=== PATIENT | male | born 1940 | race Caucasian/White ===

== ENCOUNTER 2017-07-25 18:50 | Emergency (ER) | payer OTHER, SELFPAY ==
[2017-07-25] VITALS (7 sets, daily range): BP systolic 129–155; BP diastolic 78–89; PULSE 70–77; RESP 15–23; TEMP 36.9–38.8; O2SAT 95–99; BMI 23.2
--- NOTE | 2017-07-25 19:27 | DI.RAD.S_ITS ---
PROCEDURE: XR CHEST 1V INDICATIONS: suspected sepsis TECHNIQUE: One view of the chest was acquired. COMPARISON: None. FINDINGS: Surgical changes and devices: None. Lungs and pleura: No pleural effusions or pneumothorax. Lungs are clear. Mediastinum: Mediastinal contours appear normal. Heart size is normal. Bones and chest wall: No suspicious bony lesions. Overlying soft tissues appear unremarkable. IMPRESSION: No acute cardiopulmonary findings. Dictated by: Tamela Fraga M.D. on 07/25/2017 at 19:51 Approved by: Tamela Fraga M.D. on 07/25/2017 at 19:51
[2017-07-25] MEDS: SODIUM CHLORIDE 0.9% 1,000 ML 1000 ML IV (20:00)
--- NOTE | 2017-07-25 20:01 | ED.AMS ---
HPI - Altered Mental Status General Chief Complaint: Altered Mental Status Stated Complaint: Sudden decrease in neurological function,speech Time Seen by Provider: 07/25/17 20:01 History of Present Illness HPI narrative: Patient is a 77-year-old male who presents with increased confusion and weakness. He has a history of Parkinson's and dementia. states that he started getting extremely weak and confused last evening but it progressively worsened today. He was so weak in fact that they called EMS as. She could not get him to move. He is noted to have a fever of 102 in the ED. He is having a productive cough but no chest pain or shortness of breath. He has no abdominal pain nausea or vomiting or painful urination. 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 He has not had any falls recently. MD complaint: altered mental status and confusion Onset (ago): day(s) (2) Context: recent fever Associated symptoms: cough, fever and chills Related Data Previous Rx's Medication Instructions Recorded atenolol 100 mg PO QDAY #90 tab 06/20/16 cyanocobalamin (vitamin B-12) 1,000 mcg IM SEE INSTRUCTIONS #6 ea 08/28/16 warfarin [Coumadin] 4 mg PO QDAY #28 tab 09/25/16 Allergies Allergy/AdvReac Type Severity Reaction Status Date / Time No Known Allergies Allergy Uncoded 06/27/17 13:08 Review of Systems Review of Systems All systems reviewed & are unremarkable except as noted in HPI and below Constitutional Reports fatigue, Reports fever(s), Denies headache(s) and Reports weakness ENT Ears, Nose, Mouth, and Throat: Denies headache(s) and Denies neck pain Cardiovascular Denies chest pain, Denies irregular heart rhythm, Denies lightheadedness, Denies palpitations, Denies dyspnea on exertion and Denies orthopnea Respiratory Denies change in phlegm color, Reports chest congestion, Reports cough and Denies dyspnea on exertion Gastrointestinal Gastrointestinal: Denies abdominal pain, Denies change in bowel habits, Denies diarrhea, Denies nausea and Denies vomiting Genitourinary Denies hematuria, Denies flank pain, Denies urinary incontinence and Denies urinary urgency Musculoskeletal Denies neck pain Neurologic Reports system reviewed and no additional complaints, except as docu, Reports confusion, Denies headache(s) and Reports weakness Psychiatric Reports confusion Endocrine Reports fatigue and Denies palpitations Exam Const General: cooperative and frail appearing Nutritional Appearance: well nourished Orientation: alert, awake, oriented x3 and not confused HENNE Head: normocephalic and atraumatic Ears: external ears normal and TM's normal bilaterally Face and sinus: face symmetric Mouth: moist mucous membranes Eyes General: appearance normal, both eyes and all related structures Eyelids: eyelids normal Conjunctivae: conjunctivae normal Sclera: sclerae normal Pupils: PERRL EOM: EOM intact bilaterally Neck Neck: normal visual inspection, trachea midline, No lymphadenopathy, No midline deformity and No JVD Lymphatic: No lymphedema Resp Effort & Inspection: normal respiratory effort, able to speak in complete sentences, no respiratory distress and no use of accessory muscles Auscultation: clear to auscultation bilaterally, no rales, no rhonchi and no wheezes Cardio Rate: regular rate Rhythm: regular rhythm Heart Sounds: no click, no gallops, no murmurs and no rubs Pulses: normal peripheral pulses GI Inspection: non-distended Palpation: soft, no hepatosplenomegaly, No guarding, No pulsatile mass and No tender Auscultation: normal bowel sounds Skin General: no rashes or lesions noted, No jaundice and No petechiae Neuro General: alert, oriented x3, gait normal and no focal motor deficits Cranial Nerves: CN's II-XI intact bilaterally Speech: speech normal Motor: strength 5/5 throughout Sensory Exam: no sensory deficits noted MDM - Altered Mental Status MDM Narrative Medical decision making narrative: Patient is feeling better after IV fluids and fever control. No signs of severe sepsis or even source of infection at this time. The chest x-ray urine and blood work are within normal limits. Discussed with and patient no need for antibiotics at this time and close follow-up with a primary care provider. He has no focal neurologic deficits and no recent history or sign of trauma. He is on Coumadin. At this time I do not think he warrants head CT. He improved quite a lot with IV fluids and fever control. I think his weakness and confusion is from fever. Differential Diagnosis Likely dementia, hypoglycemia, hyponatremia, subarachnoid hemorrhage and sepsis Lab Data Attestation: I reviewed the patient's lab results. Result diagrams: 07/25/17 19:45 07/25/17 19:45 Lab Results 0507/25/17 07/25/17 Range/Units 19:45 19:45 19:45 WBC 9.2 (4.5-11.0) X10^3/uL RBC 4.25 L (4.5-5.9) X10^6/uL Hgb 13.7 (13.5-17.5) g/dL Hct 38.9 L (41-53) % MCV 91.4 (80-100) fL MCH 32.2 (26-34) PG MCHC 35.2 (30-36) % RDW 14.1 (11.6-14.8) % Plt Count 126 L (150-400) X10^3/uL Neut % (Auto) 70.2 (50-75) % Lymph % (Auto) 21.0 L (25-40) % [place] % (Auto) 8.3 (3-14) % Eos % (Auto) 0.3 L (2-4) % Baso % (Auto) 0.2 (0-2) % Neut # (Auto) 6500 H (3466-5661) /uL PT 23.0 H (10.1-12.7) SECONDS INR 2.1 H (0.9-1.3) APTT 36 (26.4-36.2) SECONDS Sodium (137-145) mmol/L Potassium (3.4-5.1) mmol/L Chloride (98-107) mmol/L Carbon Dioxide (22-32) mmol/L BUN (9-20) mg/dL Creatinine (0.66-1.25) mg/dL Estimated GFR (>60) mL/min BUN/Creatinine Ratio (6-22) Glucose (80-110) mg/dL Lactate (0.7-2.1) mmol/L Calcium (8.4-10.2) mg/dL Total Bilirubin (0.2-1.3) mg/dL AST (17-59) IU/L ALT (21-72) IU/L Alkaline Phosphatase (38-126) U/L Total Protein (6.3-8.2) g/dL Albumin (3.5-5.0) g/dL Globulin (1.7-4.1) g/dL Albumin/Globulin Ratio (1.0-2.8) Lipase (23-300) U/L Procalcitonin 0.11 (<0.5) ng/mL Influenza A & B (PCR) (Negative) 07/25/17 07/25/17 07/25/17 Range/Units 19:45 19:45 21:10 WBC (4.5-11.0) X10^3/uL RBC (4.5-5.9) X10^6/uL Hgb (13.5-17.5) g/dL Hct (41-53) % MCV (80-100) fL MCH (26-34) PG MCHC (30-36) % RDW (11.6-14.8) % Plt Count (150-400) X10^3/uL Neut % (Auto) (50-75) % Lymph % (Auto) (25-40) % [place] % (Auto) (3-14) % Eos % (Auto) (2-4) % Baso % (Auto) (0-2) % Neut # (Auto) (4791-3108) /uL PT (10.1-12.7) SECONDS INR (0.9-1.3) APTT (26.4-36.2) SECONDS Sodium 141 (137-145) mmol/L Potassium 4.0 (3.4-5.1) mmol/L Chloride 101.0 (98-107) mmol/L Carbon Dioxide 27.0 (22-32) mmol/L BUN 16.0 (9-20) mg/dL Creatinine 0.60 L (0.66-1.25) mg/dL Estimated GFR > 60.0 (>60) mL/min BUN/Creatinine Ratio 26.7 H (6-22) Glucose 108 (80-110) mg/dL Lactate 0.7 (0.7-2.1) mmol/L Calcium 9.0 (8.4-10.2) mg/dL Total Bilirubin 1.1 (0.2-1.3) mg/dL AST 23 (17-59) IU/L ALT 9 L (21-72) IU/L Alkaline Phosphatase 62 (38-126) U/L Total Protein 7.7 (6.3-8.2) g/dL Albumin 4.3 (3.5-5.0) g/dL Globulin 3.4 (1.7-4.1) g/dL Albumin/Globulin Ratio 1.3 (1.0-2.8) Lipase 36 (23-300) U/L Procalcitonin (<0.5) ng/mL Influenza A & B (PCR) Negative (Negative) Imaging Data Chest x-ray: Radiologist's impression: PROCEDURE: XR CHEST 1V INDICATIONS: suspected sepsis TECHNIQUE: One view of the chest was acquired. COMPARISON: None. FINDINGS: Surgical changes and devices: None. Lungs and pleura: No pleural effusions or pneumothorax. Lungs are clear. Mediastinum: Mediastinal contours appear normal. Heart size is normal. Bones and chest wall: No suspicious bony lesions. Overlying soft tissues appear unremarkable. IMPRESSION: No acute cardiopulmonary findings. Discharge Plan Departure Patient Disposition: Home, Self-Care Clinical Impression: Acute viral syndrome, Fever Discharge Date/Time: 07/25/17 23:25 Interventions: ED Discharge Assessment Last Done: 07/25/17 23:20 Instructions: DI for Viral Syndrome, DI for Fever (Symptom) -- Adult Activity Restrictions/Additional Instructions: *You have been diagnosed with fever and likely viral syndrome *What to do: Blood work chest x-ray within normal limits, at this time no need for antibiotics, increase fluid fever control *Take medications as directed *Follow up with your primary care provider in 2-3 days *Return to ER if you should have persistent ongoing fever for more than 5 days, worsening or new symptoms, fever not controlled with Tylenol or Motrin, increased confusion or any new, worsening or concerning symptoms Prescriptions: No Action atenolol 100 MG tablet 100 mg PO QDAY Qty: 90 RF: 2 cyanocobalamin (vitamin B-12) 1,000 MCG/1 ML solution 1,000 mcg IM SEE INSTRUCTIONS Qty: 6 RF: 0 warfarin [Coumadin] 2 MG tablet 4 mg PO QDAY Qty: 28 RF: 0 Referrals: Migue Storm MD [Primary Care Provider] -
[2017-07-25 20:18] LABS: INR 2.1 (0.9-1.3)
[2017-07-25 20:19] LABS: Add Manual Diff / Slide Review NO; Basophils Percent Auto 0.2 % (0-2); Eosinophils Percent Auto 0.3 % (2-4); Hematocrit 38.9 % (41-53); Hemoglobin 13.7 g/dL (13.5-17.5); Mean Corpuscular HGB Conc 35.2 % (30-36); Mean Corpuscular Hemoglobin 32.2 PG (26-34); Mean Corpuscular Volume 91.4 fL (80-100); Monocytes Percent Auto 8.3 % (3-14); Neutrophils Absolute Auto 6500 /uL (3000-5900); Neutrophils Percent Auto 70.2 % (50-75); Platelet Count 126 X10^3/uL (150-400); Red Blood Cell Count 4.25 X10^6/uL (4.5-5.9); Red Cell Distribution Width 14.1 % (11.6-14.8); White Blood Cell Count 9.2 X10^3/uL (4.5-11.0)
[2017-07-25 20:20] LABS: PTT Partial Thromboplastin Tim 36 SECONDS (26.4-36.2)
[2017-07-25 20:23] LABS: Alanine Aminotransferase 9 IU/L (21-72); Albumin 4.3 g/dL (3.5-5.0); Albumin Globulin Ratio 1.3 (1.0-2.8); Alkaline Phosphatase 62 U/L (38-126); Aspartate Aminotransferase 23 IU/L (17-59); BUN Creatinine Ratio 26.7 (6-22); Bilirubin Total 1.1 mg/dL (0.2-1.3); Estimated Glomerular Filt Rate > 60.0 mL/min (>60); Globulin 3.4 g/dL (1.7-4.1); Glucose 108 mg/dL (80-110); HEMOLYSIS < 15 (0-50); Lipase 36 U/L (23-300); Sodium 141 mmol/L (137-145); Total Protein 7.7 g/dL (6.3-8.2)
[2017-07-25 20:24] LABS: Lactate (Lactic Acid) 0.7 mmol/L (0.7-2.1)
[2017-07-25 20:42] LABS: Procalcitonin 0.11 ng/mL (<0.5)
[2017-07-25] MEDS: ACETAMINOPHEN 325 MG TABLET 650 MG PO (20:46)
[2017-07-25] MEDS: SODIUM CHLORIDE 0.9% 500 ML 1000 ML IV (22:00)
[2017-07-25 22:34] LABS: Influenza A and B by PCR Rapid Negative (Negative)
== END 2017-07-25 23:25 | disposition home or self-care (01) ==
PROVIDERS: Emergency Provider Emergency Medicine; PCP Family Medicine
DX: B34.9 Viral infection, unspecified (principal); R50.9 Fever, unspecified
CPT/HCPCS: 36415; 36591; 71045; 80053; 81003; 83605; 83690; 84145; 85025; 85610; 85730; 87040; 87400; 99283; 99284

== ENCOUNTER → 2018-07-25 09:53 | Outpatient (CLI) | payer MEDICARE, SELFPAY ==
--- NOTE | 2018-07-25 11:01 | DI.CT.S_ITS ---
PROCEDURE: CT CHEST ABD PEL W CON INDICATIONS: DYSPHAGIA/ABDOMINAL MASS/COUGH TECHNIQUE: After the administration of oral and intravenous contrast, 5 mm thick sections acquired from the lung apices to the symphysis. 5 mm coronal and sagittal reformats were performed, with additional 7 mm coronal MIP reformats through the lungs. For radiation dose reduction, the following was used: automated exposure control, adjustment of mA and/or kV according to patient size. COMPARISON: [facility], CT, PE STUDY (CTA CHEST), 02/19/2014, 10:06. FINDINGS: Image quality: Excellent. CHEST: Lungs and pleura: No acute airspace opacities. No pleural effusions or pneumothorax. Central and peripheral airways appear patent and normal in caliber. Mediastinum: Heart size is normal. No pericardial effusion. There are dense atheromatous calcifications of the coronary arteries and the mitral valve. No mediastinal or hilar adenopathy by size criteria. Thoracic aorta and central pulmonary arteries are normal in size. Scattered atheromatous calcifications are present within the aortic arch. Esophagus is normal in caliber. No hiatal hernia. Chest wall: No axillary or supraclavicular adenopathy by size criteria. Thyroid gland is unremarkable. ABDOMEN: Solid organs: Liver is normal in size and enhancement. Multiple punctate gallstones are layered within the gallbladder fundus. No gallbladder wall thickening or pericholecystic fluid. Biliary system is non dilated. Pancreas enhances normally. Spleen is normal in size and enhancement. 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 No adrenal nodules. Kidneys demonstrate normal size and enhancement, without hydronephrosis. Peritoneum and bowel: Bowel loops demonstrate normal wall thickness and caliber. The appendix is thin walled and contrast-filled. A large amount of stool is present in the rectosigmoid. No free fluid or air. Nodes and vessels: No retroperitoneal or mesenteric adenopathy by size criteria. Aorta and inferior vena cava are normal in size. Miscellaneous: No ventral hernias. PELVIS: Genitourinary: Bladder wall thickness is normal. Miscellaneous: No inguinal hernias or adenopathy. Bones: Severe wedge compression deformities are present at the L1, L2, and L4. Moderate wedge compression deformities are present at T11, and T3. Severe degenerative changes are present throughout the visualized portions of the thoracolumbar spine. IMPRESSION: 1. No acute pulmonary findings to explain patient's cough. 2. Arterial atherosclerosis. 3. No acute intra-abdominal findings. Normal appendix. 4. Large amount of stool the rectosigmoid. 5. Multiple severe wedge compression deformities of the thoracolumbar spine. The acuity of this finding is unknown without recent prior comparison. If there is high clinical suspicion for acute or subacute fracture, noncontrast MRI of this region would be helpful to evaluate for marrow edema. Dictated by: Tamela Fraga M.D. on 07/25/2018 at 16:49 Approved by: Tamela Fraga M.D. on 07/25/2018 at 16:57
== END ==
PROVIDERS: PCP Family Medicine; Visit Provider Family Medicine
DX: R13.10 Dysphagia, unspecified (principal); R19.00 Intra-abdominal and pelvic swelling, mass and lump, unspecified site; R05 Cough; I25.10 Atherosclerotic heart disease of native coronary artery without angina pectoris; M47.815 Spondylosis without myelopathy or radiculopathy, thoracolumbar region
CPT/HCPCS: 71260; 74177; Q9967

== ENCOUNTER 2018-08-29 12:30 | Outpatient (RCR) | payer MEDICARE, SELFPAY ==
--- NOTE | 2018-08-22 09:47 | ST.OPIE ---
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 Justus Jimenez Reason for Referral Oropharyngeal Dysphagia Setting Assessment Location Outpatient Care Visit Type Note Type Initial Evaluation Next Note Type Next Note Type Treatment Note Patient Information Identification Type Name History Mr. Monson is a 78 year old male who lives at home on [address] with his . He has a history of B12 deficiency, alcohol abuse, cognitive impairment, Parkinsons (2017). A modified barium swallow study was completed in 2017 and revealed moderate oropharyngeal dysphagia significant with vallecular and pyriform sinus residue, silent laryngeal penetration from pharyngeal residue, and no aspiration. Outpatient speech therapy was recommended at that time; however, the patient did not follow up as recommended. and Mrs. Monson are here today to follow up and receive recommendations due to ongoing episdoes of choking on solid foods which they report occurs frequently at every meal. He reports having most difficulty with dry, crumbly foods such as popcorn, rice and dry cereal which he has stopped eating. He denies difficulty with liquids, but reports thicker liquids are easier to swallow. Subjective Observations and Mrs. Monson arrived on time and were pleasant and conversant. Findings Impressions Extensive verbal education was provided regarding general swallowing anatomy with a visual diagram. We also discussed results of MBSS from 2017 in detail including recommendations for safe swallow strategies and exercises. Reviewed and provided written descriptions of Alem, Darell, Shaker and Supraglottic swallow. Discussed use of thickener as patient reports ease of swallowing with thicker liquids. I suggested a repeat MBSS given likely decline in swallowing function due to dx of Parkinson's; however, they would like to spend a few months working on the recommended exercises and strategies. Diet Recommendations Liquids Order Thin Diet Order Mechanical Soft Medication Recommendations One at a Time Comments With extra water Additional Dietary Needs Reminders to Use Strategies Aspiration Precautions Recommended Precautions Upright at 90 Degrees Alternate Liquids/Solids Frequent Rest Periods Small Bites/Sips Treatment Plan Placement Recommendations after Home Discharge Appropriate for Therapy Yes Therapy Recommendations Return x1 for ongoing education of strategies and exercises. Dysphagia Goals Mr. Monson will demonstrate completion of exercises as directed given min cues.
--- NOTE | 2018-08-30 09:59 | ST.IPDYTX ---
Care Team Visit Care Team Role Provider Type Justus Jimenez Attending Provider Non-Staff Primary Care Provider Specialty: Medical Address: [address] [place] [address], [id number] Email: MARKETING SUPPORT SPECIALIST Dysphagia Treatment MARKETING SUPPORT SPECIALIST Dysphagia Treatment Start: 08/22/18 15:36 Freq: Status: Active Protocol: Document 08/29/18 15:40 TLC (Rec: 08/29/18 16:04 TLC [id number]) Dysphagia Treatment Session Time Visit Start Time 12:30 Visit Stop Time 13:15 Total Visit Minutes 45 Visit Information Visit Number 2 Plan of Care Dates 08/22/18-11/25/18 Insurance Information Medicare Setting Assessment Location Outpatient Care Visit Type Note Type Discharge Summary Patient Information Identification Type Name Subjective Observations Marshall arrived on time accompanied by his . Treatment Liquids Trialed Thin [place] Administration Type Controlled Cup Sip Self-Feeding Treatment Activities Ongoing education including review of compensatory strategies, aspiration precautions and pharyngeal exercises. I also demonstrated thickening of liquids and Mr. Gonzalez consumed trials of both thin and nectar thick liquids. He reports ease of swallowing with thicker orange juice, but decreased palatability of thickened water. No signs of aspiration observed with trials of either . I recommended use of natural at-home thickeners such as mixing apple sauce in juices for patient ease. We also discussed recommendations for mechanical soft textures and small bites/sips to decrease choking risk given patient reports. Exercises were modeled and performed by Mr. Gonzalez with moderate verbal and written cues given cognitive impairment. Mrs. Gonzalez reports the caregiver who visits weekly will assist Mr. Gonzalez in completing these. We discussed importance of intensity and repetitions of exercises. Assessment Patient Response to Treatment Good Rehab Potential Good Assessment of Improvement Mrs. Gonzalez demonstrates understanding of recommendations. Given mild cognitive impairment, Mr. Gonzalez will benefit from cues /assistance with completing exercises daily and implementing strategies/ precautions. Diet Recommendations Recommendations Continue Current Diet Liquids Order Thin Diet Order Mechanical Soft Medication Recommendations Whole in [place] One at a Time Additional Dietary Needs Reminders to Use Strategies Aspiration Precautions Recommended Precautions Upright at 90 Degrees Alternate Liquids/Solids Small Bites/Sips Double Swallow Treatment Plan Placement Recommendation after Discharge Home Therapy Recommendations Discharge at the request of Mr . and Mrs. Gonzalez. Recommend repeat MBSS if symptoms persist and the family wants to pursue treatment again in the future. Dysphagia Goals Mr. Gonzalez will demonstrate completion of exercises as directed given min cues. - completing with moderate cues
== END 2018-08-29 13:34 | disposition home or self-care (01) ==
LOC: SP 12:30
PROVIDERS: PCP Family Medicine; Visit Provider Family Medicine
DX: R13.12 Dysphagia, oropharyngeal phase (principal)
CPT/HCPCS: 92526; 92610

== ENCOUNTER 2019-11-11 14:56 | Emergency (ER) | payer MEDICARE, SELFPAY ==
[2019-11-11 15:16] VITALS: BP 119/58; PULSE 85; RESP 18; TEMP 36.9; O2SAT 98; BMI 24.7
--- NOTE | 2019-11-11 15:28 | DI.CT.S_ITS ---
PROCEDURE: CT ABDOMEN PELVIS W CON INDICATIONS: RLQ and R inguinal pain increasing over 2 weeks TECHNIQUE: After the administration of intravenous contrast, 5 mm thick sections acquired from the diaphragm to the symphysis. 5 mm coronal and sagittal reformats were acquired. For radiation dose reduction, the following was used: automated exposure control, adjustment of mA and/or kV according to patient size. COMPARISON: [facility], CT, PE STUDY (CTA CHEST), 02/19/2014, 10:06. [facility], CT, CT CHEST ABD PEL W CON, 07/25/2018, 10:56. FINDINGS: Image quality: Excellent. ABDOMEN: Lung bases: Lung bases are clear. Heart size is normal. Coronary artery calcifications are seen. Calcification can be seen of the mitral valve annulus. Solid organs: Liver is normal in size and enhancement. Gallbladder demonstrates numerous layering gallstones. Biliary system is non dilated. Pancreas enhances normally. Spleen is normal in size and enhancement. Calcified splenic granulomas are seen. No adrenal nodules. Kidneys demonstrate normal size and enhancement, without hydronephrosis. Peritoneum and bowel: Bowel loops demonstrate normal wall thickness and caliber. No free fluid or air. A normal appendix is seen, as on series 2, image 31. There is a moderate amount of stool seen within the colon. Nodes and vessels: No retroperitoneal or mesenteric adenopathy by size criteria. Aorta and inferior vena cava are normal in size. Atherosclerotic calcification is noted. Miscellaneous: No ventral hernias. PELVIS: Genitourinary: Bladder wall thickness is normal. Miscellaneous: No inguinal hernias or adenopathy. No right inguinal abnormalities are seen. Bones: No suspicious bony lesions. No acute vertebral body compression fractures. Remote compression deformities are seen involving the L1 and L4 levels, which are stable compared to the prior CT examination. Relatively prominent bony degenerative changes are seen. IMPRESSION: Normal appendix. No right inguinal abnormalities are detected. There is a moderate amount of stool seen within the colon. Please correlate with an underlying history of constipation. Incidental note is made of: Atherosclerotic calcification, including coronary artery calcification Gallstones Prior granulomatous exposure. Stable L1 and L4 compression deformities. Dictated by: Dani Olvera M.D. on 11/11/2019 at 15:47 Approved by: Dani Olvera M.D. on 11/11/2019 at 15:51
[2019-11-11 15:58] LABS: Add Manual Diff / Slide Review NO; Basophils Absolute Auto 0 /uL (0-100); Basophils Percent Auto 0.5 % (0-2); Eosinophils Absolute Auto 100 /uL (0-450); Eosinophils Percent Auto 1.4 % (2-4); Hematocrit 35.9 % (41-53); Hemoglobin 12.2 g/dL (13.5-17.5); Lymphocytes Absolute Auto 2100 /uL (1100-4500); Lymphocytes Percent Auto 36.4 % (25-40); Mean Corpuscular Hemoglobin 31.9 PG (26-34); Mean Corpuscular Volume 93.8 fL (80-100); Monocytes Absolute Auto 600 /uL (0-900); Monocytes Percent Auto 9.6 % (3-14); Neutrophils Absolute Auto 3000 /uL (1500-7000); Neutrophils Percent Auto 52.1 % (50-75); Platelet Count 135 X10^3/uL (150-400); Red Blood Cell Count 3.83 X10^6/uL (4.5-5.9); Red Cell Distribution Width 14.5 % (11.6-14.8); White Blood Cell Count 5.9 X10^3/uL (4.5-11.0)
[2019-11-11 16:10] LABS: Alanine Aminotransferase 7 IU/L (<50); Albumin Globulin Ratio 1.4 (1.0-2.8); Alkaline Phosphatase 64 U/L (38-126); Aspartate Aminotransferase 28 IU/L (17-59); BUN Creatinine Ratio 26.5 (6-22); Bilirubin Total 0.7 mg/dL (0.2-1.3); Blood Urea Nitrogen 18 mg/dL (9-20); Calcium 8.9 mg/dL (8.4-10.2); Carbon Dioxide 27 mmol/L (22-32); Chloride 109 mmol/L (98-107); Estimated Glomerular Filt Rate > 60.0 mL/min (>60); Globulin 2.9 g/dL (1.7-4.1); Glucose 96 mg/dL (80-110); HEMOLYSIS < 15 (0-50); Potassium 4.2 mmol/L (3.4-5.1); Sodium 141 mmol/L (137-145); Total Protein 6.9 g/dL (6.3-8.2)
--- NOTE | 2019-11-11 17:20 | ED_ITS ---
HPI - Abdominal Pain General Chief Complaint: Abdominal Pain Stated Complaint: possible hernia Time Seen by Provider: 11/11/19 15:28 Source: patient and other Mode of arrival: Ambulatory Limitations: no limitations History of Present Illness HPI narrative: 79-year-old gentleman with a history of Parkinson's disease with mild parkinsonian-type dementia who has had 2 and half weeks of increasing right lower quadrant and right inguinal area pain. He describes no diarrhea or constipation no blood in his stool, no fevers, no vomiting, no cough no recent trauma or falls. Related Data Previous Rx's Medication Instructions Recorded atenolol 100 mg PO QDAY #90 tab 06/20/16 cyanocobalamin (vitamin B-12) 1,000 mcg IM SEE INSTRUCTIONS #6 ea 08/28/16 warfarin [Coumadin] 4 mg PO QDAY #28 tab 09/25/16 Allergies Allergy/AdvReac Type Severity Reaction Status Date / Time No Known Drug Allergies Allergy Verified 11/11/19 15:15 Review of Systems Review of Systems Narrative: Pertinent positive and negative findings as per HPI Remainder of review of systems is otherwise unremarkable for Constitutional: Fevers, chills, weakness ENT: No sore throat, neck pain, ear pain CV: Chest pain, palpitations, dyspnea on exertion Respiratory: Cough, wheeze, dyspnea Patient History Medical History (Updated 11/11/19 @ 17:42 by Sravanthi Segura MD) Intracranial bleed (Acute) Parkinson's disease (Acute) Social History Smoking Status: Former smoker Smoking Status: Former smoker alcohol intake frequency: other Substance Use Type: does not use Exam Narrative Exam Narrative: General: Alert appropriate in no acute distress Respiratory: Able to speak in full sentences, no obvious respiratory distress Cardiac: Regular rate and rhythm without murmurs Abdomen: Soft, nondistended. Slight pinpoint right lower quadrant tenderness. He Groin, no tenderness into the testicles no obvious hernias or masses in the right inguinal crease Skin: No obvious rashes, warm and dry Neurologic: Grossly intact no obvious asymmetries or abnormalities Psych, appropriate insight and affect, cooperative Initial Vital Signs Initial Vital Signs: Vital Signs Temperature 98.4 F 11/11/19 15:16 Pulse Rate 85 11/11/19 15:16 Respiratory Rate 18 11/11/19 15:16 Blood Pressure 119/58 L 11/11/19 15:16 Pulse Oximetry 98 11/11/19 15:16 Course Orders Ordered: ED Orders 11/11/19 15:28 CT abdomen pelvis w con Stat 11/11/19 15:50 Complete Blood Count AUTO DIFF Stat Comprehensive Metabolic Panel Stat Vital Signs Vital signs: Vital Signs - 8 hr 11/11/19 15:16 Temperature 98.4 F Pulse Rate 85 Respiratory Rate 18 Blood Pressure 119/58 L Pulse Oximetry 98 MDM - Abdominal Pain Medical Records Attestation: I reviewed the patient's medical records. Lab Data Attestation: I reviewed the patient's lab results. Result diagrams: 11/11/19 15:50 11/11/19 15:50 Labs: Lab Results 11/11/19 11/11/19 Range/Units 15:50 15:50 WBC 5.9 (4.5-11.0) X10^3/uL RBC 3.83 L (4.5-5.9) X10^6/uL Hgb 12.2 L (13.5-17.5) g/dL Hct 35.9 L (41-53) % MCV 93.8 (80-100) fL MCH 31.9 (26-34) PG MCHC 34.0 (30-36) % RDW 14.5 (11.6-14.8) % Plt Count 135 L (150-400) X10^3/uL Neut % (Auto) 52.1 (50-75) % Lymph % (Auto) 36.4 (25-40) % [place] % (Auto) 9.6 (3-14) % Eos % (Auto) 1.4 L (2-4) % Baso % (Auto) 0.5 (0-2) % Neut # (Auto) 3000 (7646-4550) /uL Lymph # (Auto) 2100 (6905-5610) /uL [place] # (Auto) 600 (0-900) /uL Eos # (Auto) 100 (0-450) /uL Baso # (Auto) 0 (0-100) /uL Sodium 141 (137-145) mmol/L Potassium 4.2 (3.4-5.1) mmol/L Chloride 109 H (98-107) mmol/L Carbon Dioxide 27 (22-32) mmol/L BUN 18 (9-20) mg/dL Creatinine 0.68 (0.66-1.25) mg/dL Estimated GFR > 60.0 (>60) mL/min BUN/Creatinine Ratio 26.5 H (6-22) Glucose 96 (80-110) mg/dL Calcium 8.9 (8.4-10.2) mg/dL Total Bilirubin 0.7 (0.2-1.3) mg/dL AST 28 (17-59) IU/L ALT 7 (<50) IU/L Alkaline Phosphatase 64 (38-126) U/L Total Protein 6.9 (6.3-8.2) g/dL Albumin 4.0 (3.5-5.0) g/dL Globulin 2.9 (1.7-4.1) g/dL Albumin/Globulin Ratio 1.4 (1.0-2.8) Imaging Data CT scan - abdomen/pelvis: Radiologist's Impression: IMPRESSION: Normal appendix. No right inguinal abnormalities are detected. There is a moderate amount of stool seen within the colon. Please correlate with an underlying history of constipation. Incidental note is made of: Atherosclerotic calcification, including coronary artery calcification Gallstones Prior granulomatous exposure. Stable L1 and L4 compression deformities. Dictated by: Dani Olvera M.D. on 11/11/2019 at 15:47 MDM Narrative Medical decision making narrative: 79-year-old gentleman with 2 weeks of abdominal pain focused in the right lower quadrant and right inguinal area. Normal labs no evidence of surgical pathology on CT scan and no evidence of inguinal hernia. Notable for obstipation. Will try a bit of a colon cleanse and see if this influences pain. Also discussed recommendations for a better daily bowel regimen. Patient is safe for home discharge Discharge Plan Departure Patient Disposition: Home Clinical Impression: Obstipation Abdominal pain Qualifiers: Abdominal location: right lower quadrant Qualified Code(s): R10.31 - Right lower quadrant pain Instructions: DI for Constipation Activity Restrictions/Additional Instructions: Thank you for coming in today Your blood work is very reassuring, your CT scan shows no evidence of hernia, appendicitis or other surgical problems in your belly. It also shows a dramatic amount of stool throughout your entire colon. I suspect that this is been an increasing problem over the last 2 weeks and is what is contributing to the pain in her currently having. I have sent you home with a bottle of magnesium citrate, when you get home, go ahead and drink the entire bottle. The goal is to get to almost watery stool. If there is little movement or still mostly formed stool after 1 bottle please by a 2nd bottle at the grocery store knees that tomorrow. To prevent this from happening again I am going to suggest that you use a dose of MiraLax (17 g, 1 full cap full) every single day. If you find that you are having loose stools you can back off on this. I suspect that your Parkinson's and the medications that you are taking to help control this are contributing to your chronic constipation. I hope you feel better Prescriptions: No Action atenolol 100 MG tablet 100 mg PO QDAY Qty: 90 RF: 2 cyanocobalamin (vitamin B-12) 1,000 MCG/1 ML solution 1,000 mcg IM SEE INSTRUCTIONS Qty: 6 RF: 0 warfarin [Coumadin] 2 MG tablet 4 mg PO QDAY Qty: 28 RF: 0 Referrals: Justus Jimenez [Primary Care Provider] -
[2019-11-11 17:48] VITALS: BP 122/74; PULSE 68; RESP 22; O2SAT 96
[2019-11-11] MEDS: MAGNESIUM CITRATE 300 ML SOLUTION PO (17:49)
== END 2019-11-11 17:55 | disposition home or self-care (01) ==
PROVIDERS: Emergency Provider Emergency Medicine; PCP Family Medicine; Referring Provider Family Medicine
DX: R10.31 Right lower quadrant pain (principal); K59.00 Constipation, unspecified; G20 Parkinson's disease
CPT/HCPCS: 36415; 74177; 80053; 85025; 99283; 99284

== ENCOUNTER → 2020-01-11 13:04 | Outpatient (CLI) | payer MEDICARE, SELFPAY ==
[2020-01-12 11:10] LABS: COVID19 -Nasal RAPID Negative (Negative)
== END ==
PROVIDERS: PCP Family Medicine; Visit Provider Physician Assistant
DX: Z11.59 Encounter for screening for other viral diseases (principal)
CPT/HCPCS: 87635

== ENCOUNTER 2020-01-14 11:09 | Day surgery (SDC) | payer MEDICARE, SELFPAY ==
[2020-01-09 08:47] VITALS: BMI 22.4
[2020-01-14] VITALS (18 sets, daily range): BP systolic 133–182; BP diastolic 58–104; PULSE 55–101; RESP 12–18; TEMP 36.1–36.7; O2SAT 94–100; BMI 23.1; BMI 22.3
--- NOTE | 2020-01-14 | PATH_ITS ---
[facility] Accession Number: [id number] . 01 Material submitted: . hernia - HERNIA SAC . 01 Clinical history: . HERNIA . 02 Diagnosis: Hernia Sac, Excision: Benign fibroadipose tissue, consistent with hernia sac. No evidence of neoplasm. MRV 01/19/2020 0955 Local . 02 Electronically signed: . Tawanda Tucker MD, PhD, Pathologist NPI- [id number] . 01 Gross description: . Received in formalin, labeled hernia sac, and consists of a 4.0 x 2.5 x 1.2 cm wei-pink fibromembranous fragment of soft tissue with attached wei-yellow lobulated adipose tissue. Sheriff'[employer] Officer sections are submitted in cassette A1. ([id number]) /MRV 01/15/2020 1417 Local . 02 Pathologist provided ICD-10: K40.30 . 02 CPT . 465640 Performed at: 01 [facility] [address] [facility], [place], [place] [id number] MD [place] Naidu MD Phone: [phone] Performed at: 02 [facility] [address] [place], [place] [id number] MD Hina Toledo MD Phone: [phone]
[2020-01-14] MEDS: LACTATED RINGERS 1,000 ML 42 ML IV (12:12)
[2020-01-14] MEDS: ACETAMINOPHEN 325 MG TABLET 975 MG PO (12:13)
--- NOTE | 2020-01-14 14:39 | PM.PREOP ---
Pre-operative Note COVID-19 COVID-19 status: Negative Result date/Date tested (Pos, Neg/Pending): 01/11/20 Interval Note History & Physical reviewed/Exam performed by Physician: Yes Changes to H&P: No
[2020-01-14] MEDS: CEFAZOLIN 2 GM/100 ML FROZ.PIGGY IV (14:49)
--- NOTE | 2020-01-14 15:11 | SUR.OPER ---
Supine on padded OR bed, head on pillow, arms secured on padded arm boards at <90 degrees abduction, legs uncrossed, safety belt at thigh, tape over blanket over lower legs.
[2020-01-14] MEDS: BUPIVACAINE 0.25% W/ EPI 30 ML VIAL INJ ×2 (15:16→15:49)
[2020-01-14] MEDS: BUPIVACAINE LIPOSOME 266 MG/20 ML VIAL INJ (15:48)
--- NOTE | 2020-01-14 16:24 | P.OP_ITS ---
Operative Date/Time/Diagnoses Date of procedure: 01/14/20 Time of procedure: 16:24 Pre-op diagnosis: Right inguinal hernia Post-op diagnosis: same Procedure & Clinicians Procedure: Open repair of right inguinal hernia with mesh Same procedure as scheduled: Yes Indications: Symptomatic right inguinal hernia Surgeon: Jadyn Berrios Yes if Unassisted: Yes Anesthesia Type: General Operative Notes Findings: Indirect right inguinal hernia; weak inguinal canal floor Specimen(s): other (hernia sac) Prosthetic devices, grafts, tissues, transplants, or devices: BARD lightweight macroporous mesh Estimated Blood Loss (mL): 2 Blood products transfused: none Procedure in detail: The patient was brought into the OR, placed supine on the OR table, and appropriate preoperative antibiotics were given. Sequential compression devices were placed on both legs and turned on. General anesthesia was induced and the patient was intubated with an LMA by the anesthesiologist. The right lower abdomen and groin were prepped and draped in sterile fashion for inguinal incision. A surgical time out was conducted. Local anesthetic was infiltrated into the skin and a 15 blade was used to make an oblique 10cm incision two finger breadths superior to the inguinal ligament. Dissection was carried down to through the subcutaneous fat and meagan's fascia. Dissection was carried down to the aponeurosis of the external oblique. Using a fresh 15 blade, I opened the aponeurosis after giving generous local anesthetic. There was a moderate indirect inguinal hernia with a heavily scarred sac attached to the spermatic cord, and a weak inguinal canal floor. I dissected out the hernia sac and ligated it high in indirect space using 3-0 Vicryl. I divided the excess sac with cautery. I then gave local anesthetic in the inguinal canal f josesito, pubic tubercle, and conjoint tendon, using a total of 60mL of 0.25% Marcaine with Epi. I also infiltrated the area superior to Poupart's ligament with 20mL Exparel in small aliquots. A BARD macroporous inguinal hernia mesh was then brought into the field and shaped to fit the groin. I secured it to the ligaments overlying the pubic tubercle with 2cm overlap, and then secured it to the inguinal ligament inferiorly and the conjoint tendon superiorly with 2-0 PDS suture. I made an opening in the mesh to accommodate the spermatic cord, ensuring it was appropriately sized to avoid strangulation of the cord. Once the mesh was secure, I closed the external oblique aponeurosis with 3-0 Vicryl. I closed the Meagan's fascia with 3-0 Vicryl. The remaining local anesthetic was given in the skin and soft tissue. The skin was closed with running 4-0 Monocryl subcuticular stitch. The skin edges were sealed with Dermabond. The patient was awakened from anesthesia and extubated. He tolerated the procedure well. Needle, sponge and instrument counts were correct x 2. The patient was transferred to PACU in stable condition. Complications: none Post-operative Condition: stable Disposition: PACU
[2020-01-14] MEDS: CARBIDOPA-LEVODOPA ER 50/200 TABLET 1 EACH PO (19:12)
[2020-01-15 01:41] VITALS: BP 109/64; PULSE 104; RESP 16; TEMP 36.7; O2SAT 96
--- NOTE | 2020-01-15 01:50 | PC.NURSE ---
Patient has been sleeping since start of shift but now awake and restless in bed. Speech is difficult to understand but does state name is Rl. When asked if he is in pain he states no. Moving arms/legs around constantly and unable to keep still for any length of time. Is not belligerent but resistive to cares. BT present and abdomen is soft. Incision to RLQ of abdomen is dermabonded, well approximated and without redness. Assisted to turn onto left side. SCD's are off as previous RN stated patient would not leave them on. Is also not on continuous oximetry as will not leave oximeter on. Fall risk score is high at RN discretion and bed alarm is activated.
[2020-01-15 04:35] VITALS: BP 153/76; PULSE 74; RESP 16; TEMP 36.1; O2SAT 99
[2020-01-15 08:00] VITALS: BP 155/76; PULSE 57; RESP 16; TEMP 36.9; O2SAT 97
--- NOTE | 2020-01-15 10:48 | CM.IDA ---
Initial DCP Assessment Note Pt is a 79 yo female, resident of [place], now POD#1 from hernia repair surgery w/ Dr Palma PCP: Justus Jimenez Payer: [employer] Reviewed chart, Met w/patient and spouse early this AM to introduce role. Spouse states she has a caregiver that assist spouse approx 6 hours weekly and can increase hours if needed. Patient/spouse intend to catch the [address] to [place] this AM. Spouse denies needs from this INFORMATION TECHNOLOGY PROFESSOR No needs expected from DC planning team. Later heard that patient/spouse made it out of the building on time for their morning ferry TASHI Jaime
--- NOTE | 2020-01-15 10:54 | PC.NURSE ---
Discharge teaching done for patient and regarding incision, activity, medication, follow up appointment, falls, s/s of infection, s/s of stroke. All belongings with patient. Patient prescriptions sent to pharmacy via electronic submission. Patient left facility it wheelchair w/ in private vehicle.
== END 2020-01-15 09:00 | disposition home or self-care (01) ==
LOC: OR 15:38 → AC 18:43
PROVIDERS: PCP Family Medicine; Referring Provider Surgery; Visit Provider Surgery
PROC: (CPT 49505; principal; 2020-01-14 13:15)
DX: K40.30 Unilateral inguinal hernia, with obstruction, without gangrene, not specified as recurrent (principal); G20 Parkinson's disease; J44.9 Chronic obstructive pulmonary disease, unspecified; I10 Essential (primary) hypertension; D68.51 Activated protein C resistance; F03.90 Unspecified dementia, unspecified severity, without behavioral disturbance, psychotic disturbance, mood disturbance, and anxiety; Z79.01 Long term (current) use of anticoagulants
CPT/HCPCS: 49505; C1781; C9290; J0690; J1100; J2405; J2704

== ENCOUNTER → 2020-03-01 12:54 | Outpatient (CLI) | payer MEDICARE, SELFPAY ==
[2020-01-14 18:25] VITALS: BMI 22.3
--- NOTE | 2020-03-01 | DI.RAD.S_ITS ---
PROCEDURE: FL BARIUM SWALLOW W SPEECH INDICATIONS: Dysphagia, unspecified COMPARISON: TECHNIQUE: Examination was conducted in conjunction with speech pathology per standard protocol. In the lateral projection, filming was performed of the patient swallowing. AP projection filming may also be performed with patient swallowing. COMPARISON: [facility], , BARIUM SWALLOW WITH SPEECH, 07/13/2016, 9:35. FINDINGS: Function: The oral preparatory phase appears delayed. The subsequent oral propulsive phase, pharyngeal phase, and esophageal phase of swallowing also appear delayed There was frequent silent laryngotracheal penetration and aspiration. Large amount of residue seen. Morphology: No cricopharyngeal bar is identified. No cervical esophageal webs. No Zenker's diverticulum. No strictures. IMPRESSION: Silent tracheal aspiration Dictated by: Kole Ash M.D. on 03/01/2020 at 16:26 Approved by: Kole Ash M.D. on 03/01/2020 at 16:27
--- NOTE | 2020-03-02 18:19 | ST.SWALLOW ---
Visit Care Team Role Provider Type Justus Jimenez MD Primary Care Provider Non-Staff Referring Provider Specialty: Family Practice Address: [address] [place] [address], [id number] Email: Attending Provider Specialty: Address: Phone: Fax: Email: Modified Barium Swallow Study BEAN SORTER Modified Barium Swallow Study Start: 03/01/20 08:39 Freq: Status: Active Protocol: Document 03/01/20 08:39 DANIEL (Rec: 03/01/20 08:43 DANIEL [id number]) Modified Barium Swallow Study Total Time Visit Start Time 13:25 Visit Stop Time 14:20 Total Visit Minutes 45 Setting Setting Outpatient Care Patient Information Identification Type Name,ID Card Patient History Case history was obtained from medical records and pt/spouse reports, primarily from spouse report: The pt is a 79- year-old man with Parkinson's disease (Dx 2016) with associated dementia and oropharyngeal dysphagia. The pt underwent previous MBSS on 07/13/2016 which revealed mild -moderate oropharyngeal dysphagia, per spouse report. The pt participated in limited dysphagia therapy. By his 's report, he was non- compliant with swallow exercise program and rejected the recommended thickened liquids. He currently consumes regular diet and thin liquid and exhibits coughing and choking with all meals. Bulky foods such as breads present the greatest challenge for the pt. Additionally, he exhibits much coughing when he awakes in the mornings, sometimes producing viscous phlegm, about the size of a quarter, which frequently has food residue in it. Often, it is very difficult for the pt to expel what he is coughing on, be it phlegm, saliva or food/ liquid. PMHx is also significant for right inguinal hernia repair with mesh (01/15/20); alcohol- induced polyneuropathy; and hx of COPD. Subjective Observations The pt arrived early for procedure accompanied by his , who ambulated him via wheelchair. The pt was able to transfer to [facility] chair with 1- person assistance. He and his provided case history supplemental to medical records. Following the procedure, the pt's was present for education of results and recommendations. The pt followed all instructions during the study and was pleasant throughout. Patient Positioning Position View Lateral Imaging Lateral View Textures Administered Trials Presented Thin Liquid via Spoon,Thin Liquid via Cup,Vaiden Liquid via Spoon,Vaiden Liquid via Cup,Honey Liquid via Spoon, Regular Textures Oral Phase Source: MBSIMP (TM) (C) Bolus Specific Scoring Grid Lip Closure WFL Tongue Control During Bolus Hold Mild Impairment Bolus Prep/Mastication Mild Impairment Bolus Transport/Lingual Motion Mild Impairment A/P Lingual Propulsion Delay Yes: Occ with lingual rocking and tremor Oral Residue Moderate Impairment Residue Clearing WFL Nasal Regurgitation No Additional Oral Phase Observations Oral Peripheral Exam: Symmetrical features. Adequate lingual, labial and buccal ROM; reduced strength and coordination. Excellent elevation of soft palate upon phonation. The pt has natural dentition with few molars missing and in good condition for age. Moderate effort including forward body movements and extension of neck were noted frequently when the pt had difficulty with a/p propulsion of bolus. This difficulty occurred more frequently with sticky textures, such as HTL and cookie with barium pudding and impacted visibility of the oral cavity during oral prep and swallow phases. Pharyngeal Phase Source: MBSIMP (TM) (C) Bolus Specific Scoring Grid Delayed Initiation of Pharyngeal Swallow Yes: With 1 trial only, HTL to level of vallecula Soft Palate Elevation No Impairment (WNL) Tongue Base Strength/Range of Motion Moderate Impairment Residue Along the Tongue Base Yes Clearance of Residue Along Tongue Base Moderate Impairment Laryngeal Elevation No Impairment (WNL) Anterior Hyoid Movement Mild Impairment Epiglottic Range of Motion No Impairment (WNL) Vallecular Residue Yes: Copious Clearance of Vallecular Residue Severe Impairment Laryngeal Vestibular Closure Mild Impairment Pharyngeal Stripping Wave Moderate Impairment Posterior Pharyngeal Wall Residue Yes: Trace to mild Clearance of Posterior Pharyngeal Wall Mild Impairment Residue Upper Esophageal Sphincter Opening Moderate Impairment Residue in the Pyriform Sinuses Yes: Copious Clearance of Residue in the Pyriform Severe Impairment Sinuses Pharyngoesophageal Backflow Observed No Additional Pharyngeal Phase Observations The greatest impact on the pt' s swallow safety is copious amounts of residue at vallecula and pyriform sinuses , resulting from minimal pharyngeal stripping wave, reduced tongue base strength and reduced extension and duration of UES. This occurred with all trials but worsened with increased bolus bulk. Dry swallows did little to clear residue. At end of study, the pt was given clear thin water, which did aid in clearing the pharynx. Trace penetration of thin liquid was observed during swallow x1, without cough response from the pt. The pt was instructed to cough to attempt to clear. Cough was weak and effortful with more phonation than air flow. Upon visualization of larynx after the pt coughed, increased ( mild-moderate) penetration of contrast was observed in the laryngeal vestibule extending to the VFs. This residue did not clear, making it difficult to determine exact timing and extent of penetration with subsequent trials. Contrast in the larynx did increase both during swallows of NTL and with residue during dry swallows with NTL, HTL and cookie. All penetration was silent in nature. No aspiration was observed during the study, although minimal aspiration is suspected to have occurred between images. A/P View Clinical Impressions Dysphagia Type Mild-Moderate Oral and Moderate-Severe Pharyngeal Dysphagia Findings Dysphagia is secondary to reduced strength and coordination of musculature, particularly pharyngeal musculature resulting in significant pharyngeal residue that enters the laryngeal vestibule during swallows as the pt attempts to clear it. Spontaneous cough response was absent, and volitional cough was weak and not protective and appeared to contribute to penetration of contrast. Comparison was made to previous MBSS (2017). Findings were similar in nature with now increased severity. Given reports given by spouse of the pt's reduced participation in previous dysphagia therapy, the pt is not a good candidate for therapy targeting swallow exercises. The pt also lives on [facility], making it difficult, particularly during the current COVID-19 pandemic , to travel for therapy. However, he reported liking to sing and may benefit from therapy targeting increased vocal loudness, thereby increasing breath support for voice, swallow, and protective cough. Research indicates that such voice exercises may have positive impact on swallow function as well. Rehabilitation Potential Fair Patient Appropriate for Therapy Yes: The pt may benefit from therapy to increase breath support Recommendations Diet Liquids Order Thin Diet Order Dysphagia Mechanical Medication Recommendation As Tolerated Additional Dietary Needs Chopped Food,Single Sips, Controlled Sips,1:1 Supervision,Reminders to Use Strategies Aspiration Precautions Recommended Precautions Upright at 90 Degrees,Frequent Rest Periods,Small Bites/Sips ,Double Swallow Treatment Plan Therapy Recommendations Outpatient Speech Therapy, Other Additional Therapy Recommendations Home Health; Telepractice, if available, may be a good option for this pt. Additional Recommended Referrals Follow up with PCP. Compensatory Strategies Recommendations Sitting Upright (90 deg), Double Swallow,Small Bites and Sips,Alternate Liquids/Solids Short Term Goals Therapy to target breath support for protective cough and for swallow coordination; Vocal pitch range exercises to increase laryngeal displacement for improved airway closure. Retirement Goals The pt will improve airway protection to reduce risk of aspiration. Additional Recommendations/Comments Home with spouse
== END ==
PROVIDERS: PCP Family Medicine; Referring Provider Family Medicine; Visit Provider Psychiatry & Neurology Neurology
DX: R13.10 Dysphagia, unspecified (principal); J98.8 Other specified respiratory disorders
CPT/HCPCS: 74230; 92611

== ENCOUNTER → 2020-06-07 11:08 | Outpatient (CLI) | payer MEDICARE, SELFPAY ==
[2020-01-14 18:25] VITALS: BMI 22.3
--- NOTE | 2020-06-07 12:11 | DI.CT.S_ITS ---
PROCEDURE: CT CHEST ABD PEL W CON INDICATIONS: Abnormal weight loss,Dysphagia, unspecified,Anorex TECHNIQUE: After the administration of oral and intravenous contrast, 5 mm thick sections acquired from the lung apices to the symphysis. 5 mm coronal and sagittal reformats were performed, with additional 7 mm coronal MIP reformats through the lungs. For radiation dose reduction, the following was used: automated exposure control, adjustment of mA and/or kV according to patient size. COMPARISON: [facility], CT, CT ABDOMEN PELVIS W CON, 11/11/2019, 16:24. FINDINGS: Image quality: Excellent. CHEST: Lungs and pleura: No acute airspace opacities. 1 centimeter calcified granuloma in the right middle lobe. No pleural effusions or pneumothorax. Central and peripheral airways appear patent and normal in caliber. Mediastinum: Heart is at the upper limits of normal in size. Mitral annulus calcifications. Atherosclerotic calcifications are noted in the aorta, great vessels and the coronary vasculature. No pericardial effusion. No mediastinal or hilar adenopathy by size criteria. Thoracic aorta and central pulmonary arteries are normal in size. Esophagus is normal in caliber. No hiatal hernia. Chest wall: Bilateral gynecomastia. No axillary or supraclavicular adenopathy by size criteria. Thyroid gland is within normal limits. ABDOMEN: Solid organs: Liver is normal in size and enhancement. Gallbladder contains multiple calcified gallstones. Biliary system is non dilated. Pancreas enhances normally. Spleen is normal in size and enhancement. Numerous punctate calcifications in the spleen compatible sequela prior granulomatous disease. No adrenal nodules. Kidneys demonstrate normal size and enhancement, without hydronephrosis. Peritoneum and bowel: Bowel loops demonstrate normal wall thickness and caliber. Moderate amount of stool noted throughout the colon. No free fluid or air. Nodes and vessels: No retroperitoneal or mesenteric adenopathy by size criteria. Aorta and inferior vena cava are normal in size. Scattered atherosclerotic calcifications involving the abdominal and pelvic vasculature. Miscellaneous: No ventral hernias. PELVIS: Genitourinary: Bladder wall thickness is normal. Miscellaneous: No inguinal hernias or adenopathy. Bones: No suspicious bony lesions. Chronic left 8th, 9th, 10th and 11th rib fractures. Chronic appearing T6 T11, T12, L1, L2, L3, L4 and L5 vertebral body compression fractures. No acute vertebral body compression fractures. Spine degenerative disc disease and facet arthropathy. IMPRESSION: 1. No lymphadenopathy based on size criteria. 2. No abnormal mass identified. 3. Sequela prior granulomatous disease. 4. Atherosclerosis including the coronary vasculature. 5. Moderate fecal loading throughout the colon. Please correlate with clinical data. 6. Multiple chronic appearing thoracic and lumbar spine compression fractures. 7. Gynecomastia. 8. Cholelithiasis. Dictated by: Felicia Mccartney MD, PhD on 06/07/2020 at 13:46 Approved by: Felicia Mccartney MD, PhD on 06/07/2020 at 13:55
== END ==
PROVIDERS: PCP Family Medicine; Referring Provider Family Medicine; Visit Provider Family Medicine
DX: R63.4 Abnormal weight loss (principal); R13.10 Dysphagia, unspecified; R63.0 Anorexia; N62 Hypertrophy of breast; K80.20 Calculus of gallbladder without cholecystitis without obstruction; M48.54XA Collapsed vertebra, not elsewhere classified, thoracic region, initial encounter for fracture; M48.56XA Collapsed vertebra, not elsewhere classified, lumbar region, initial encounter for fracture; I25.10 Atherosclerotic heart disease of native coronary artery without angina pectoris; I70.0 Atherosclerosis of aorta
CPT/HCPCS: 71260; 74177; Q9967